=== PATIENT | male | born 1985 | race Two or more races ===

== ENCOUNTER 2018-10-05 19:06 | Emergency (ER) | payer OTHER ==
[~2018-10-05] VITALS: Ht 172.7 cm; Wt 108.9 kg
[2018-10-07] MEDS ORDERED: KETO10TA2 PO (14:37)
== END 2018-10-06 00:30 | disposition home or self-care (01) ==
LOC: ER 19:06
DX: N21.1 Calculus in urethra (principal); R10.31 Right lower quadrant pain

== ENCOUNTER 2018-10-07 08:25 | Outpatient (CLI) | payer OTHER ==
[2018-10-07] MEDS ORDERED: KETO10TA2 PO (14:37)
== END 2018-10-07 08:59 | disposition home or self-care (01) ==
LOC: RAD 501 08:25
DX: N20.1 Calculus of ureter (principal)

== ENCOUNTER 2018-10-07 16:40 | Emergency (ER) | payer OTHER ==
[~2018-10-07] VITALS: Ht 172.7 cm; Wt 108.9 kg
[~2018-10-07 16:40] MED LIST: KETO10TA2 PO
== END 2018-10-07 20:34 | disposition home or self-care (01) ==
LOC: ER 16:40
DX: N20.1 Calculus of ureter (principal)

== ENCOUNTER 2018-10-08 10:53 | Day surgery (SDC) | payer OTHER | END 2018-10-08 19:00 | disposition home or self-care (01) | LOC: CIR.AMB 10:53 | DX: N20.1 Calculus of ureter (principal) ==

== ENCOUNTER 2018-10-21 08:45 | Outpatient (CLI) | payer OTHER | END 2018-10-21 08:53 | disposition home or self-care (01) | LOC: RAD 501 08:45 | DX: N20.0 Calculus of kidney (principal) ==

== ENCOUNTER 2020-01-18 08:09 | Outpatient (CLI) | payer OTHER | END 2020-01-18 08:24 | disposition home or self-care (01) | LOC: RAD 08:09 | PROVIDERS: ATTEND Urology | DX: N20.0 Calculus of kidney (principal) ==

== ENCOUNTER 2020-03-21 10:47 | Outpatient (CLI) | payer OTHER | END 2020-03-21 10:55 | disposition home or self-care (01) | LOC: RAD 10:47 | PROVIDERS: ATTEND Urology | DX: N20.0 Calculus of kidney (principal) ==

== ENCOUNTER 2020-04-25 08:45 | Outpatient (CLI) | payer OTHER | END 2020-04-25 08:47 | disposition home or self-care (01) | LOC: RAD 08:45 | PROVIDERS: ATTEND Urology | DX: N20.1 Calculus of ureter (principal) ==

== ENCOUNTER 2022-06-20 20:44 | Inpatient (IN) | payer OTHER ==
[~2022-06-20] VITALS: Ht 292.1 cm; Wt 124.7 kg
[2022-06-24] MEDS ORDERED: TRIPLE ANTIBIOT28 G1 TD (11:01)
[2022-06-24] MEDS ORDERED: CEFACLOR500 MG PO (11:01)
== END 2022-06-24 13:29 | disposition home or self-care (01) | DRG 603 ==
LOC: ER 20:44 → MEDI 06-21 13:25 → SEC-K 06-21 13:25 → MEDI 06-21 15:48
PROVIDERS: ADMIT Internal Medicine; ATTEND Internal Medicine
DX: L03.116 Cellulitis of left lower limb (principal); B95.61 Methicillin susceptible Staphylococcus aureus infection as the cause of diseases classified elsewhere; B35.3 Tinea pedis; N28.9 Disorder of kidney and ureter, unspecified

== ENCOUNTER → 2022-10-25 13:30 | Outpatient (CLI) | payer OTHER ==
[~2022-10-25 13:30] MED LIST changes: +CEFACLOR500 MG PO; +TRIPLE ANTIBIOT28 G1 TD
== END | disposition home or self-care (01) ==
LOC: LAB 13:30
PROVIDERS: ATTEND Obstetrics & Gynecology
DX: Z20.828 Contact with and (suspected) exposure to other viral communicable diseases (principal); Z20.818 Contact with and (suspected) exposure to other bacterial communicable diseases